=== PATIENT | male | born 1975 | race African-American/Black ===

== ENCOUNTER 2021-10-03 14:53 | Emergency (ER) | payer BC, OTHER ==
[2021-10-03] MEDS ORDERED: ACETAMINOPHEN 325 MG TABLET (FP) PO ONE (14:57)
[2021-10-03] MEDS ORDERED: DIPHTH,PERTUSS(ACELL),TET 0.5 ML DISP.SYRIN IM ONE ×2 (14:58→15:22)
[2021-10-03] MEDS ORDERED: ACETAMINOPHEN 1000 MG/100 ML BAG IVPB ONE (15:12)
[2021-10-03] MEDS ORDERED: morphine CARPU-JECT 4 MG/1 ML DISP.SYRIN IVPUSH ONE (15:12)
[2021-10-03] MEDS ORDERED: ACETAMINOPHEN INJECTION 100 ML IVPB ONE (15:22)
[2021-10-03] MEDS ORDERED: morphine SULFATE 4 MG/ML VIAL ONE (15:22)
[2021-10-03] MEDS ORDERED: ceFAZolin 2 GRAM PREMIX BAG IVPB ONE (15:26)
[2021-10-03 15:51] VITALS: BP 113/72; PULSE 62; TEMP 97.9; BMI 28.8
[2021-10-03] MEDS ORDERED: ceFAZolin SODIUM 1 GM VIAL ONE (15:51)
[2021-10-03] MEDS ORDERED: LIDOCAINE HCL 2% (20ML MULTI-DOSE VIAL) ONE (18:14)
[2021-10-03] MEDS ORDERED: LIDOCAINE 2.5%/PRILOCAINE 2.5% (5 Gram/TUBE) TP ONE (18:17)
== END 2021-10-03 19:35 | disposition home or self-care (01) ==
LOC: FER 14:53
PROC: 3E0234Z Introduction of Serum, Toxoid and Vaccine into Muscle, Percutaneous Approach (ICD-10-PCS; principal; 2021-10-03)
PROC: 3E033GC Introduction of Other Therapeutic Substance into Peripheral Vein, Percutaneous Approach (ICD-10-PCS; principal; 2021-10-03)
DX: S62.650B Nondisplaced fracture of middle phalanx of right index finger, initial encounter for open fracture (principal); W31.2XXA Contact with powered woodworking and forming machines, initial encounter
CPT/HCPCS: 73110-TC-RT-FY; 73130-TC-RT-FY; 73140-TC-RT-FY; 90715; 99284-25

== ENCOUNTER 2021-10-12 06:18 | Day surgery (SDC) | payer BC ==
[2021-10-08 16:07] VITALS: BMI 31.3
[2021-10-12] MEDS ORDERED: MIDAZOLAM HCL 2 MG/2 ML SINGLE DOSE VIAL ONE (07:38)
[2021-10-12] MEDS ORDERED: PROPOFOL 20 ML ONE (07:38)
[2021-10-12] MEDS ORDERED: SODIUM CHLORIDE 0.9% P/F 10 ML VIAL IJ ONE (07:40)
[2021-10-12] MEDS ORDERED: ceFAZolin SODIUM 1 GM VIAL ONE ×2 (07:40→11:48)
[2021-10-12] MEDS ORDERED: LIDOCAINE HCL/PF 2% SDV 5ML VIAL ONE (07:40)
[2021-10-12] MEDS ORDERED: GLYCOPYRROLATE 0.2 MG/1 ML VIAL ONE (07:42)
[2021-10-12] MEDS ORDERED: DESFLURANE GAS 240 ML BOTTLE IH ONE (08:00)
[2021-10-12] MEDS ORDERED: DEXAMETHASONE SOD PHOSPHATE 4 MG/1 ML VIAL ONE (08:14)
[2021-10-12] MEDS ORDERED: ONDANSETRON 4 MG/2 ML VIAL ONE (08:16)
[2021-10-12] MEDS ORDERED: BUPIVACAINE HCL 100 ML ONE (08:50)
[2021-10-12] MEDS ORDERED: BACITRACIN 15 GM TUBE TOPICAL OINTMENT ONE (12:18)
[2021-10-12] MEDS ORDERED: ONDANSETRON 4 MG/2 ML VIAL IVPB PRN (13:10)
[2021-10-12] MEDS ORDERED: oxyCODONE HCL 5 MG TABLET PO PRN ×4 (13:10→13:37)
[2021-10-12] MEDS ORDERED: LACTATED RINGERS SOLUTION 1,000 ML IV SCH (13:15)
[2021-10-12] MEDS ORDERED: ONDANSETRON 4 MG/2 ML VIAL IVPUSH PRN (13:37)
[2021-10-12] MEDS ORDERED: PROMETHAZINE HCL 25 MG/1 ML VIAL IVPUSH PRN (13:37)
[2021-10-12 14:38] VITALS: TEMP 97.7
[2021-10-12 14:49] VITALS: BP 120/73; PULSE 75
== END 2021-10-12 15:12 | disposition home or self-care (01) ==
LOC: FASU 06:18
PROVIDERS: ATTEND Plastic Surgery
PROC: 01Q40ZZ Repair Ulnar Nerve, Open Approach (ICD-10-PCS; 2021-10-12)
PROC: 0LQ70ZZ Repair Right Hand Tendon, Open Approach (ICD-10-PCS; 2021-10-12)
PROC: 01U60JZ Supplement Radial Nerve with Synthetic Substitute, Open Approach (ICD-10-PCS; principal; 2021-10-12 08:29)
PROC: 01U40JZ Supplement Ulnar Nerve with Synthetic Substitute, Open Approach (ICD-10-PCS; 2021-10-12 08:29)
DX: S56.101A Unspecified injury of flexor muscle, fascia and tendon of right index finger at forearm level, initial encounter (principal); S64.492A Injury of digital nerve of right middle finger, initial encounter; X58.XXXA Exposure to other specified factors, initial encounter; Y93.9 Activity, unspecified; Y92.9 Unspecified place or not applicable
CPT/HCPCS: 26370; 64831; 64910; C1713; 73140-TC-RT-FY; 94760